=== PATIENT | female | born 1990 | race Two or more races ===

== ENCOUNTER 2020-09-11 09:47 | Emergency (ER) | payer SELFPAY ==
[~2020-09-11] VITALS: Ht 157.5 cm; Wt 70.0 kg
--- NOTE | 2020-09-11 10:11 | ED.ADGEN ---
General Adult EDM: Chief Complaint: CHEST WALL PAIN HPI: HPI: Patient is a 30 year old female who arrives ambulatory to the emergency department complaint of left-sided rib/lower chest pain. Patient reportedly has had this pain ongoing now for 2 days. Patient states this pain is reproducible along the costal margin at the left side of her chest. Patient states occasionally she has pain whenever she moves a certain way. Despite having this pain, the patient denies any history of fever, cough or trauma. She further denies any medical conditions of a cardiovascular pulmonary nature. Review of Systems: Review of Systems: Constitutional: Denies fever or chills. [] Eyes: Denies change in visual acuity. [] HENT: Denies nasal congestion or sore throat. [] Respiratory: Reports chest wall pain. Denies cough or shortness of breath. [] Cardiovascular: Denies chest pain or edema. [] GI: Denies abdominal pain, nausea, vomiting, bloody stools or diarrhea. [] : Denies dysuria. [] Musculoskeletal: Denies back pain or joint pain. [] Integument: Denies rash. [] Neurologic: Denies headache, focal weakness or sensory changes. [] Endocrine: Denies polyuria or polydipsia. [] Lymphatic: Denies swollen glands. [] Psychiatric: Denies depression or anxiety. [] Allergies: Allergies: Allergies Coded Allergies Type Severity Reaction Last Updated Verified aspirin Allergy Mild itching 09/11/20 Yes Physical Exam: PE: Constitutional: Well developed, well nourished, no acute distress, non-toxic appearance. [] HENT: Normocephalic, atraumatic, bilateral external ears normal, oropharynx moist, no oral exudates, nose normal. [] Eyes: PERRLA, EOMI, conjunctiva normal, no discharge. [] Neck: Normal range of motion, no tenderness, supple, no stridor. [] Cardiovascular:Heart rate regular rhythm, no murmur [] Lungs & Thorax: Patient has pain with palpation along the costal margin just beneath her left breast. Bilateral breath sounds clear to auscultation [] Abdomen: Bowel sounds normal, soft, no tenderness, no masses, no pulsatile masses. [] Skin: Warm, dry, no erythema, no rash. [] Back: No tenderness, no CVA tenderness. [] Extremities: No tenderness, no cyanosis, no clubbing, ROM intact, no edema. [] Neurologic: Alert and oriented X 3, normal motor function, normal sensory function, no focal deficits noted. [] Psychologic: Affect normal, judgement normal, mood normal. [] Current Patient Data: Vital Signs: Vital Signs Date Time Temp Pulse Resp B/P (MAP) Pulse Ox O2 Delivery O2 Flow Rate FiO2 09/11/20 10:42 98.2 90 16 143/66 (91) 100 Room Air 98.2 EKG: EKG: [] Heart Score: C/O Chest Pain: No Risk Factors: Risk Factors: DM, Current or recent (<one month) smoker, HTN, HLP, family history of CAD, obesity. Risk Scores: Score 0 - 3: 2.5% MACE over next 6 weeks - Discharge Home Score 4 - 6: 20.3% MACE over next 6 weeks - Admit for Clinical Observation Score 7 - 10: 72.7% MACE over next 6 weeks - Early Invasive Strategies Radiology/Procedures: Radiology/Procedures: [] Course & Med Decision Making: Course & Med Decision Making Pertinent Labs and Imaging studies reviewed. (See chart for details) [] Dragon Disclaimer: Dragon Disclaimer: This electronic medical record was generated, in whole or in part, using a voice recognition dictation system. Departure Departure Impression: Primary Impression: Chest wall pain Disposition: 01 DC HOME SELF CARE/HOMELESS Condition: GOOD Referrals: NO PCP (PCP) Patient Instructions: Chest Wall Pain Additional Instructions: The patient has been advised to return to the emergency department should she have any substernal chest pain at any time. Upon reevaluation the patient is without that kind of pain or history thereof. She is nontoxic-appearing and stable for discharge. Scripts Cyclobenzaprine Hcl (CYCLOBENZAPRINE HCL) 5 Mg Tablet 1 TAB PO TID for 5 Days, #15 TAB Prov: CHALINO WYLIE DO 09/11/20 Tramadol Hcl (ULTRAM) 50 Mg Tablet 50 MG PO Q6HRS PRN for PAIN for 3 Days, #12 TAB 0 Refills Prov: CHALINO WYLIE DO 09/11/20 CHALINO WYLIE DO Sep 11, 2020 10:11
--- NOTE | 2020-09-11 11:25 | RAD ---
EXAM: XR RIBS MIN 3 VIEWS LT W/PA CHEST INDICATION: Reason: Left-sided rib pain / Spl. Instructions: / History: . TECHNIQUE: Single view PA chest and 2 additional views of the left ribs COMPARISON: None FINDINGS: The heart size is normal. The great vessels appear unremarkable. There is no hilar or mediastinal mass. The lungs are clear. There is no pleural effusion or pneumothorax. There are no significant osseous abnormalities. IMPRESSION: No active cardiopulmonary disease and no left rib fractures or aggressive bony lesions.. Electronically signed by: Lucy Vences MD (09/11/2020 11:22 AM) [id number]
[2020-09-11] MEDS ORDERED: TRAM-48 PO (11:29)
[2020-09-11] MEDS ORDERED: CYCL5TAB PO (11:29)
[2020-09-11 11:51] VITALS: BP 140/60
== END 2020-09-11 11:52 | disposition home or self-care (01) ==
LOC: ER 09:47
DX: R07.89 Other chest pain (principal); Z88.8 Allergy status to other drugs, medicaments and biological substances
CPT/HCPCS: 71101; 99283